=== PATIENT | male | born 1980 | race Two or more races ===

== ENCOUNTER 2023-12-12 18:08 | Emergency (ER) | payer OTHER ==
[2023-12-12 18:16] VITALS: BP 143/98; PULSE 90; RESP 18; TEMP 98.4; BMI 32.6
[2023-12-12] MEDS ORDERED: LIDOCAINE 2.5%/PRILOCAINE 2.5% (5 Gram/TUBE) TP ONE (20:31)
[2023-12-12] MEDS: LIDOCAINE 2.5%/PRILOCAINE 2.5% (5 Gram/TUBE) TP ONE (21:17)
== END 2023-12-12 21:21 | disposition home or self-care (01) ==
LOC: JER 18:08
DX: K62.89 Other specified diseases of anus and rectum (principal); K64.9 Unspecified hemorrhoids
CPT/HCPCS: 82272; 99283-25